=== PATIENT | female | born 1950 | race Caucasian/White ===

== ENCOUNTER 2017-03-06 09:52 | Emergency (ER) | payer MEDICARE, BC ==
[2017-03-06 10:25] VITALS: BP 123/78
--- NOTE | 2017-03-06 11:46 | RAD ---
Indication: Finger injury. 4 views of left hand demonstrates a fracture through the dorsal plate of the distal phalanx of the fifth digit. Degenerative changes of the distal interphalangeal joints of the first through fourth digit is noted. IMPRESSION: Fracture of the dorsal plate proximal end of the distal phalanx.
--- NOTE | 2017-03-06 12:13 | UC ---
Curtis Curry Billy, scribed for LourdesDon wesley MD on 03/06/17 at 1145 . Hand/Wrist HPI - HPI Summary HPI Summary: In Room Note: Patient is a 67 year-old female coming to [facility] for evaluation of increased pain and swelling to the left 5th finger this morning after hitting her finger on a banister. However, the finger had been injured several weeks ago and never fully recovered, and she has since been unable to bend the finger without significant pain. Note: Vital signs stable. BP is 123/78. Pulse O2 99% on room air. Previous visit history noncontributory to current acute complaint. Nurse's Note: Pt states several weeks ago she was cross [place] skiing and was unable to unbend her pinky finger and then became swollen. Pt states took some time for swelling to go down. pt states this morning she hit her finger on a banister and pinky had increased swelling. - History Of Current Complaint Chief Complaint: UCUpperExtremity Stated Complaint: FINGER INJURY Time Seen by Provider: 03/06/17 10:52 Hx Obtained From: Patient Onset/Duration: Sudden Onset, Lasting Weeks, Worse Since - today Severity Initially: Moderate Severity Currently: Moderate Pain Intensity: 5 Pain Scale Used: 0-10 Numeric Character Of Pain: Aching Aggravating Factor(s): Movement Alleviating: Rest Associated Signs And Symptoms: Positive: Swelling - Allergies/Home Medications Allergies/Adverse Reactions: Allergies Allergy/AdvReac Type Severity Reaction Status Date / Time No Known Allergies Allergy Verified 03/06/17 10:25 PMH/Surg Hx/FS Hx/Imm Hx Endocrine History Of: Denies: Diabetes Cardiovascular History Of: Denies: Hypertension, Pacemaker/ICD GI/ History Of: Denies: Renal Disease Cancer History Of: Denies: Breast Cancer - Surgical History Surgical History: Yes Surgery Procedure, Year, and Place: LAMINECTOMY 02/2012,. HAND SURGERY- NERVE RE -ATTACHMENT 2007, BILAT CARPAL TUNNEL RELEASE. breast biopsy - Lt -BENIGN - - Family History Known Family History: Positive: Cardiac Disease - Social History Occupation: Retired Alcohol Use: Daily Alcohol Amount: 1 glass wine Substance Use Type: Excessive Caffeine Substance Use Comment - Amount & Last Used: clonazepam at night Smoking Status (MU): Former Smoker Type: Cigarettes Review of Systems Constitutional: Negative Skin: Negative Eyes: Negative ENT: Negative Respiratory: Negative Cardiovascular: Negative Gastrointestinal: Negative Genitourinary: Negative Motor: Negative Neurovascular: Negative Musculoskeletal: Arthralgia, Edema Neurological: Negative Psychological: Negative All Other Systems Reviewed And Are Negative: Yes Physical Exam Triage Information Reviewed: Yes Appearance: Well-Appearing, No Pain Distress, Well-Nourished Vital Signs: Initial Vital Signs Temp 97.7 F 03/06/17 10:17 Pulse 75 03/06/17 10:17 Resp 16 03/06/17 10:17 BP 123/78 03/06/17 10:17 Pulse Ox 99 03/06/17 10:17 Vital Signs Reviewed: Yes Eyes: Positive: Conjunctiva Clear ENT: Positive: Hearing grossly normal, Pharynx normal, TMs normal. Negative: Muffled/hoarse voice Neck: Positive: Supple, No Lymphadenopathy Respiratory: Positive: Chest non-tender, Lungs clear, Normal breath sounds, No respiratory distress Cardiovascular: Positive: RRR, No Murmur Abdomen Description: Positive: Nontender, No Organomegaly, Soft Bowel Sounds: Positive: Present Musculoskeletal Exam: Other - OF THE LEFT 5TH FINGER, THERE IS ECCHYMOSIS JUST PROXIMAL TO THE NAIL WELL SWELLING THERE AND OVER THE INTERPHALANGEAL JOINT. THERE IS ALSO ECCHYMOSIS ON THE VOLAR ASPECT OVER THE MIDDLE PHALANX. THE FINGER LACKS APPROXIMATELY 20 DEGREES OF FULL EXTENSION. Neurological: Positive: Alert Psychological: Positive: Age Appropriate Behavior Skin: Negative: rashes Diagnostics - Radiology Hand x-ray Radiology Interpretation Completed By: Radiologist - Fracture of the dorsal plate proximal end of the distal phalanx. Hand/Wrist Course/Dx - Course Course Of Treatment: Medications have been included in the original chart and reviewed. Patient is Urgent/Emergent. BP elevated due to current condition w/o HTN in PMH. This is a 67 year-old female coming to [facility] for evaluation of increased pain and swelling to the left 5th finger today. X-ray shows a fracture of the dorsal plate proximal end of the distal phalanx. Plan for pain management was discussed with the patient. She was given a splint and will be discharged home to follow up with orthopedics. We stressed the importance of following up with the audit specialist, and informed the patience of the risks of not doing so. - Differential Dx/Diagnosis Provider Diagnoses: fracture of the dorsal plate proximal end of the distal phalanx Discharge - Discharge Plan Condition: Stable Disposition: HOME Patient Education Materials: Jammed Finger (ED), Finger Fracture (ED) Referrals: Francisco Roque MD [Primary Care Provider] - Man Bryant MD [Medical Doctor] - Additional Instructions: Thank you for helping us improve patient care by filling out the My[employer] Survey. we discussed: Ice for discomfort; use the splint to protect. You have broken a part of the bone in your 5th finger of your left hand. Follow up with Dr. Bryant. For pain you can take acetaminophan 1000mg along with 400 mg of ibuprofen if either medication alone is not sufficient. The documentation as recorded by the Curtis geller Billy accurately reflects the service I personally performed and the decisions made by me, Don Alegria MD.
== END 2017-03-06 12:17 | disposition home or self-care (01) ==
LOC: UCEAST 09:52
DX: S62.637A Displaced fracture of distal phalanx of left little finger, initial encounter for closed fracture (principal); W22.8XXA Striking against or struck by other objects, initial encounter; Y93.9 Activity, unspecified; Y92.9 Unspecified place or not applicable; Z87.891 Personal history of nicotine dependence
CPT/HCPCS: 99211; G0463

== ENCOUNTER 2017-10-14 09:57 | Day surgery (SDC) | payer MEDICARE, BC ==
[~2017-10-14 09:57] MED LIST: Acetaminophen TAB* 325 MG PO PRN; Buffered Lidocaine 0.9% SYRIN* 5 ML/SYR SYRINGE INTRADERM ONE
[2017-10-14] MEDS ORDERED: Midazolam* 1 MG/ML 2 ML VIAL (2 MG) ONE ×2 (10:13→10:59)
[2017-10-14] MEDS ORDERED: fentaNYL* 50 MCG/ML 2 ML VIAL (100 MCG VIAL) ONE (10:54)
[2017-10-14 11:28] VITALS: BP 106/64
--- NOTE | 2017-10-14 13:14 | OP ---
DATE OF OPERATION/DATE OF DICTATION: 10/14/2017 - [facility] DATE OF : 1950. SURGEON: Dr. Kristopher Arauz. PHYTOPATHOLOGIST: None. ANESTHESIA: Topical with intravenous sedation. PRE-OP DIAGNOSIS: Cataract, right eye. POST-OP DIAGNOSIS: Cataract, right eye. OPERATIVE PROCEDURE: Phacoemulsification and cataract extraction with posterior chamber intraocular lens implant, right eye. COMPLICATIONS: None. BLOOD LOSS: None. DESCRIPTION OF PROCEDURE: The patient was brought to the operating room and received a small amount of intravenous sedation. A drop of Tetracaine was placed in her right eye. She was prepped and draped in the usual sterile fashion for ophthalmic surgery and attention was directed to the right eye where a speculum was placed. A paracentesis was created at the 11 o'clock position and 0.1 cc of 1 percent preservative-free Lidocaine was injected into the anterior chamber followed by DisCoVisc. The eye was digitally stabilized while a 2.75 mm keratome was used to create a triplanar clear corneal incision at the 9 o'clock position. A continuous curvilinear capsulorrhexis was created with a cystotome and Utrata forceps. BSS on a cannula was used to hydrodissect the lens from the capsule. Phacoemulsification was performed in a divide-and- conquer technique to create four fragments which were removed. Residual cortical material was removed with irrigation and aspiration. DisCoVisc was used to inflate the capsular bag and an AUOOTO 21.0 diopter lens was folded and inserted into the capsular bag. DisCoVisc was removed using irrigation and aspiration. BSS on a cannula was used to hydrate the corneal stroma and seal the wound. At the end of the case the pupil was round and the lens was centered. The eye was of normal pressure and the wound was water tight. The speculum was removed and topical Maxitrol ointment was placed on the surface of the eye. The eye was closed, patched and shielded and the patient was sent to the recovery room in stable condition with post operative instructions and follow-up appointment given. [id number]/CPS #: [id number] MTDD
[2017-10-14] MEDS ORDERED: Lidocaine 1% MPF* 2 ML VIAL ONE (15:25)
[2017-10-14] MEDS ORDERED: Tetracaine 0.5% OPTH.SOL 4 ML* 1 DROP BTL ONE (15:25)
[2017-10-14] MEDS ORDERED: Cyclopentolate 1% OPTH.SOL* 2 ML BTL ONE (15:25)
[2017-10-14] MEDS ORDERED: Tropicamide 1% OPTH.SOL* BTL ONE (15:25)
[2017-10-14] MEDS ORDERED: Neomycin/Polymy/Dex OPHTH.OIN* 3.5 GM ONE (15:25)
[2017-10-14] MEDS ORDERED: Ketorolac 0.5% OPHTH (NF) 0.5 % 5 ML BTL ONE (15:25)
[2017-10-14] MEDS ORDERED: Phenylephrine 2.5% OPTH.SOL* 2 ML BTL ONE (15:25)
== END 2017-10-14 11:45 | disposition home or self-care (01) ==
LOC: OREAST 09:57
PROVIDERS: ATTEND Ophthalmology
DX: H25.21 Age-related cataract, morgagnian type, right eye (principal); M54.5 Low back pain; F41.1 Generalized anxiety disorder; Z87.891 Personal history of nicotine dependence
CPT/HCPCS: A9270-GY; J2250; J3010; V2632